=== PATIENT | female | born 1995 | race Caucasian/White ===

== ENCOUNTER 2016-07-19 20:25 | Emergency (ER) | payer MEDICAID ==
[~2016-07-19] VITALS: Ht 165.1 cm; Wt 97.7 kg
[2016-07-19 20:54] VITALS: BP 130/69
--- NOTE | 2016-07-20 00:10 | NUR ---
PATIENT LEFT WITHOUT BEING SEEN BY DR. Beltre. NO FURTHER CARE PROVIDED FOR PATIENT.
== END 2016-07-20 00:10 | disposition left against medical advice (07) ==
LOC: MED 20:25
DX: R51 Headache (principal); Z53.21 Procedure and treatment not carried out due to patient leaving prior to being seen by health care provider

== ENCOUNTER 2020-09-05 00:13 | Emergency (ER) | payer MEDICAID ==
[~2020-09-05] VITALS: Ht 165.1 cm; Wt 106.6 kg
[2020-09-05 00:20] VITALS: BP 147/90
--- NOTE | 2020-09-05 00:20 | NUR ---
TO BED AMBULATORY
--- NOTE | 2020-09-05 00:28 | NUR ---
25/F C/O OF EAR PAIN 08/28 WHICH STARTED 2 DAYS AGO. PT DENIES ANY TRAUMA, BLEEDING, OR DISCHARGES. PT STATES SHE CLEANED HER EARS WITH HYDROGEN PEROXIDE 4 DAYS AGO. PMH: HTN NKDA
[2020-09-05] MEDS ORDERED: CIPR7.5S RIGHT EAR (00:43)
[2020-09-05 00:50] VITALS: BP 147/90
--- NOTE | 2020-09-05 00:50 | NUR ---
Patient discharged with v/s stable. Written and verbal after care instructions given and explained. Patient alert, oriented and verbalized understanding of instructions. Ambulatory with steady gait. All questions addressed prior to discharge. ID band removed. Patient advised to follow up with PMD. Rx of CIPROFLOXACIN OTIC SUSPENSION given. Patient educated on indication of medication including possible reaction and side effects. Opportunity to ask questions provided and answered.
== END 2020-09-05 00:50 | disposition home or self-care (01) ==
LOC: MED 00:13
DX: H60.91 Unspecified otitis externa, right ear (principal)
CPT/HCPCS: 99283